=== PATIENT | female | born 1980 | race Caucasian/White ===

== ENCOUNTER 2022-12-25 20:48 | Inpatient (IN) | payer BC ==
[2022-12-25] VITALS (10 sets, daily range): BP systolic 71–113; BP diastolic 36–91; PULSE 81–97; TEMP 97.8–97.9
[~2022-12-25] VITALS: Ht 157.5 cm; Wt 80.0 kg
[~2022-12-25 20:48] MED LIST: ASPIRIN 81M81 MG/TA2 PO; LOVENOX 4040 MG/0.4 SQ; PRENATAL TABLET PO; SYNTHROID0.05 MG/TA PO; VITAMIN D31000 I1 PO
[2022-12-25 21:47] LABS: BASO % 0.3 % (0.0-2.0); EOS % 0.3 % (0.0-4.0); GRAN # 6.9 K/mm3 (1.4-6.5); GRAN % 79.7 % (42.2-75.2); HEMOGLOBIN 11.3 g/dl (12.5-16.0); LYMPH % 11.1 % (20.0-51.0); MEAN CELL VOLUME 90 fl (80.0-100.0); MEAN CORPUSCULAR HEMOGLOBIN 32 pg (27-31); MEAN CORPUSCULAR HGB CONC 35 g/dl (33.0-37.0); MEAN PLATELET VOLUME 10.4 fl (7.4-10.4); MONO # 0.6 K/mm3 (0.1-0.6); MONO % 7.4 % (1.7-9.3); PLATELET COUNT 155 K/mm3 (130-400); RED BLOOD COUNT 3.58 M/mm3 (4.10-5.30); REDCELL DISTRIBUTION WIDTH-CV 12.5 % (11.5-14.5)
[2022-12-25 21:48] LABS: HEMATOCRIT 32.2 % (37.0-47.0)
[2022-12-26] VITALS (10 sets, daily range): BP systolic 86–111; BP diastolic 54–80; PULSE 69–115; TEMP 97.9–98.7
[2022-12-26] MEDS ORDERED: [UNRECOGNIZED DRUG - CODE] SQ (02:00)
[2022-12-26 08:07] LABS: HEMOGLOBIN 10.3 g/dl (12.5-16.0)
[2022-12-26 08:10] LABS: HEMATOCRIT 30.1 % (37.0-47.0)
[2022-12-26 08:24] LABS: ALBUMIN 2.6 gm/dL (3.5-5.0); BILIRUBIN,TOTAL 0.5 mg/dL (0.2-1.2); CALCIUM 8.5 mg/dL (8.4-10.2); CREATININE, serum 0.83 mg/dL (0.57-1.11); TOTAL PROTEIN 6.1 gm/dL (6.2-8.1)
[2022-12-27 07:00] VITALS: BP 102/63; PULSE 74; TEMP 97.4
== END 2022-12-27 14:38 | disposition home or self-care (01) | DRG 787 ==
LOC: LDRO 20:48 → OB 21:24 → LDR 21:24 → OB 12-26
PROVIDERS: Obstetrics & Gynecology; ADMIT Obstetrics & Gynecology
PROC: 10D00Z1 Extraction of Products of Conception, Low, Open Approach (ICD-10-PCS; principal; 2022-12-25)
DX: O34.219 Maternal care for unspecified type scar from previous cesarean delivery (principal); D68.61 Antiphospholipid syndrome; O99.12 Other diseases of the blood and blood-forming organs and certain disorders involving the immune mechanism complicating childbirth; Q62.10 Congenital occlusion of ureter, unspecified; O99.284 Endocrine, nutritional and metabolic diseases complicating childbirth; E03.9 Hypothyroidism, unspecified; Z3A.37 37 weeks gestation of pregnancy; Z37.0 Single live birth; Z79.890 Hormone replacement therapy; Z88.8 Allergy status to other drugs, medicaments and biological substances; Z23 Encounter for immunization
CPT/HCPCS: J0171; J0456; J0690; J1100; J1650; J1885; J2370; J2405; J2590; J7050; J7120